=== PATIENT | male | born 1950 | race Caucasian/White ===

== ENCOUNTER 2019-10-24 13:01 | Day surgery (SDC) | payer MEDICARE ==
[~2019-10-24] VITALS: Ht 177.8 cm; Wt 93.3 kg
[~2019-10-24 13:01] MED LIST: BUPIVACAINE/PF 0.5% ONE; EPINEPHRINE 1 MG/ML, 1ML ONE
[2019-10-24] MEDS ORDERED: LACTATED RINGERS 1,000 ML IV SCH (13:25)
[2019-10-24] MEDS ORDERED: FLUT1DIS5 INH (13:29)
[2019-10-24] MEDS ORDERED: METO-282 PO (13:29)
[2019-10-24 13:32] VITALS: BP 117/80
[2019-10-24] MEDS ORDERED: FENTANYL PF 100 MCG/2ML ONE (14:04)
[2019-10-24] MEDS ORDERED: ROPIvacaine/PF 0.5%, 30 ML ONE (14:08)
[2019-10-24] MEDS ORDERED: MIDAZOLAM 1 MG/ML, 2ML ONE (14:43)
[2019-10-24] MEDS ORDERED: DEXAMETHASONE 4 MG/ML, 1ML ONE (14:47)
[2019-10-24] MEDS ORDERED: KETOROLAC 30 MG/1 ML ONE (14:47)
[2019-10-24] MEDS ORDERED: CEFAZOLIN 1,000 MG ONE (14:47)
[2019-10-24] MEDS ORDERED: ONDANSETRON 2MG/ML, 2ML ONE (14:47)
[2019-10-24] MEDS ORDERED: PROPOFOL 10 MG/ML, 20ML ONE (14:47)
[2019-10-24] MEDS ORDERED: hydrALAzine 20 MG/ML, 1ML IV PRN (15:30)
[2019-10-24] MEDS ORDERED: OXYcodone 5 MG/5 ML ORAL.SOL UDC PO PRN (15:30)
[2019-10-24] MEDS ORDERED: HALOPERIDOL 5 MG/ML IV PRN (15:30)
[2019-10-24] MEDS ORDERED: ACETAMINOPHEN 325 MG TABLET PO PRN (15:30)
[2019-10-24] MEDS ORDERED: FENTANYL PF 100 MCG/2ML IV PRN (15:30)
[2019-10-24] MEDS ORDERED: MEPERIDINE/PF 25MG/ML,1ML IVPush PRN (15:30)
[2019-10-24] MEDS ORDERED: ALBUTEROL/IPRATROPIUM 2.5MG/0.5MG, 3 ML NPPB PRN (15:30)
[2019-10-24] MEDS ORDERED: HYDROmorphone 2 MG/ML, 1ML IVPush PRN (15:30)
[2019-10-24] MEDS ORDERED: MEPERIDINE/PF 50 MG/ML ONE (15:33)
== END 2019-10-24 17:50 | disposition home or self-care (01) ==
LOC: OUT 13:01
PROVIDERS: ATTEND Orthopaedic Surgery
DX: S52.571A Other intraarticular fracture of lower end of right radius, initial encounter for closed fracture (principal); J45.909 Unspecified asthma, uncomplicated; I10 Essential (primary) hypertension; W19.XXXA Unspecified fall, initial encounter; Y93.89 Activity, other specified; Y92.89 Other specified places as the place of occurrence of the external cause; Y99.8 Other external cause status
CPT/HCPCS: 25609; 64415; 73100; 76000; 93005; C1713; J0690; J1100; J1885; J2175; J2405; J2704; J2795; J7120; J0171; J2250; J3010